=== PATIENT | female | born 1930 | race Caucasian/White ===

== ENCOUNTER 2021-01-15 15:23 | Emergency (ER) | payer MEDICARE, OTHER ==
[~2021-01-15] VITALS: Ht 160 cm; Wt 77.1 kg
[2021-01-15] MEDS ORDERED: FURO40TA5 PO (15:33)
[2021-01-15] MEDS ORDERED: AMLO-212 PO (15:33)
[2021-01-15] MEDS ORDERED: NIFE-35 PO (15:33)
[2021-01-15] MEDS ORDERED: CALC-17 PO (15:33)
[2021-01-15] MEDS ORDERED: GABA-532 PO (15:33)
[2021-01-15] MEDS ORDERED: TELM80TA9 PO (15:33)
[2021-01-15] MEDS ORDERED: CLOP75TA15 PO (15:33)
[2021-01-15] MEDS ORDERED: OMEP20CA15 PO (15:33)
[2021-01-15] MEDS ORDERED: OMEG-220 PO (15:33)
[2021-01-15] MEDS ORDERED: BUSP10TA35 PO (15:33)
[2021-01-15] MEDS ORDERED: ASPI-1420 PO (15:33)
[2021-01-15] MEDS ORDERED: ALLO100T PO (15:33)
[2021-01-15] MEDS ORDERED: SPIR50TA5 PO (15:33)
[2021-01-15] MEDS ORDERED: METF-440 PO (15:33)
[2021-01-15] MEDS ORDERED: MYRBETRIQ PO (15:33)
--- NOTE | 2021-01-15 15:55 | NUR ---
THE PATIENT IS BIBRA FROM HOME C/O LOW BACK PAIN RADIATES TO R LEG ER BED #2. THE PATIENT IS ALERT AND ORIENTED X3. IN ROOM AIR AND DENIES SOB. RESPIRATION REGULAR AND UNLABORED. THE PATIENT IS ATATCHED TO THE MONITOR. WILL CONTINUE TO MONITOR.
[2021-01-15] MEDS ORDERED: CYCLOBENZAPRINE 10 MG TABLET ONE (16:27)
[2021-01-15] MEDS ORDERED: KETOROLAC TROMETHAMINE 15 MG/ML VIAL ONE (16:27)
[2021-01-15] MEDS: CYCLOBENZAPRINE 10 MG TABLET PO ONE (16:32)
[2021-01-15] MEDS: KETOROLAC TROMETHAMINE INJ 30 MG/ML VIAL IM ONE (16:33)
[2021-01-15] MEDS: LIDOCAINE 5% (PATCH) 1 EA PATCH TP SCH (16:39)
--- NOTE | 2021-01-15 16:39 | NUR ---
PATIENT IS MADE AWARE THAT LIDOCAINI PATCH TO BE REMOVED IN 12 HR AND THE PATIENT VERBALIZED UNDERSTANDING.
[2021-01-15] MEDS ORDERED: CYCL5TAB PO (16:54)
[2021-01-15] MEDS ORDERED: LIDO30AD10 TP (16:54)
--- NOTE | 2021-01-15 17:32 | NUR ---
[facility] TRANSPORT WITH [facility] ETA 1 HOUR
[2021-01-15 19:13] VITALS: BP 131/76
--- NOTE | 2021-01-15 19:14 | NUR ---
Patient discharged to home in stable condition. Written and verbal after care instructions given. Patient verbalizes understanding of instruction. The patient leaving the hospital in stable conditon.
== END 2021-01-15 19:14 | disposition home or self-care (01) ==
LOC: ER 16:05
DX: M54.41 Lumbago with sciatica, right side (principal); M79.661 Pain in right lower leg; R22.41 Localized swelling, mass and lump, right lower limb; I10 Essential (primary) hypertension; E11.9 Type 2 diabetes mellitus without complications; Z79.899 Other long term (current) drug therapy; Z79.82 Long term (current) use of aspirin; Z79.84 Long term (current) use of oral hypoglycemic drugs
CPT/HCPCS: 93971; 96372; 99284; A6403; J1885